=== PATIENT | male | born 1985 | race Caucasian/White ===

== ENCOUNTER 2016-07-22 21:57 | Inpatient (IN) | payer BC, MEDICARE, OTHER ==
[~2016-07-22] VITALS: Ht 175.3 cm; Wt 74.0 kg
[~2016-07-22 21:57] MED LIST: BACT800T5 PO; CIPR500T4 PO; HYDR-3580 PO; NORC7.5T PO
[2016-07-22 22:01] VITALS: BP 118/69; PULSE 110; RESP 22; TEMP 98.3; O2SAT 100
[2016-07-22 22:24] VITALS: BP 150/70; PULSE 96; RESP 18; TEMP 98.3; O2SAT 100
[2016-07-22] MEDS ORDERED: SODIUM CHLORIDE 0.9% FLUSH 10 ML FLUSH IVF PRN (22:30)
--- NOTE | 2016-07-22 22:36 | PD ---
HPI Chief Complaint: Respiratory Symptoms Time Seen by Provider: 22:19 (Efrain Fierro MD) Time Seen by Provider: 00:57 (Choco Mon MD) Travel History International Travel<30 days: No Contact w/Intl Traveler<30days: No Traveled to known affect area: No (Efrain Fierro MD) History of Present Illness HPI Patient 30-year-old male history of IV drug use and endocarditis status post valve replacement to possible aortic valve presents emergency department for chest pain shortness of breath as well as leg swelling. Patient states approximately 8 days ago he was in [place] and went to a physician who stated he had a pneumonia and prescribed him antibiotics. He states since starting the antibiotics he continues to have cough chest pain and shortness of breath and thinks he has endocarditis because it feels same as he had last time. He was told he had a heart murmur in the past he thinks he has an aortic valve replaced. He continues to use IV drugs and used IV drugs since being seen by this other physician 8 days ago. He does however deny any fever. (Efrain Fierro MD) HPI Dr. Fierro left this patient with me to check the lab and make a disposition likely admission. (Choco Mon MD) [facility] Past Medical History Asthma: Yes Anxiety: Yes Depression: No Cancer: No Cardiac Catheterization: Yes Cardiovascular Problems: Yes (hx of endocarditis) Congestive Heart Failure: Yes Cerebrovascular Accident: Yes (2013) Diminished Hearing: No Endocrine: No Gastrointestinal Disorders: No Genitourinary: Yes Hepatitis: Yes (HEP C) Hypertension: Yes Immune Disorder: No Implanted Vascular Access Dvce: No Musculoskeletal: No Neurologic: No Psychiatric: Yes Reproductive: No Respiratory: Yes Immunizations Current: No Pneumonia: Yes (X 2) Renal Failure: Yes (JULY 2013 FROM "BECKY OVERDOSE", DIALYSIS X 7 WEEKS) Tetanus Vaccination: < 5 Years (Efrain Fierro MD) Past Surgical History Cardiac Surgery: Yes (MITRAL VALVE REPLACEMENT AFTER ENDOCARDITIS ) Valve Replacement: Yes Other Surgery: Yes (Efrain Fierro MD) Social History Alcohol Use: Yes () Tobacco Use: Yes (1/2 PPD) Substance Use: Yes (IV DRUG ABUSE, POLY SUBSTANCE ABUSE) (Efrain Fierro MD) Allergies-Medications (Allergen,Severity, Reaction): Coded Allergies: Sesame Seed (Unverified Allergy, Severe, Anaphylaxis, 07/22/16) Shellfish (Unverified Allergy, Severe, Anaphylaxis, 07/22/16) Reported Meds & Prescriptions Reported Meds & Active Scripts Active No Active Prescriptions or Reported Medications (Choco Mon MD) Review of Systems Except as stated in HPI: all other systems reviewed are Neg (Efrain Fierro MD) Except as stated in HPI: all other systems reviewed are Neg (Choco Mon MD) Physical Exam Narrative GENERAL: Well-developed well-nourished, no apparent distress. SKIN: No splinter hemorrhages no Janeway lesions no Osler nodes. HEAD: Atraumatic. Normocephalic. EYES: Pupils equal and round. No scleral icterus. No injection or drainage. ENT: No nasal bleeding or discharge. Mucous membranes pink and moist. NECK: Trachea midline. Mild JVD. CARDIOVASCULAR: Regular rate and rhythm. Crescendo decrescendo systolic murmur best heard in the left sternal border. RESPIRATORY: No accessory muscle use. Clear to auscultation. Breath sounds equal bilaterally. GASTROINTESTINAL: Abdomen soft, non-tender, nondistended. Hepatic and splenic margins not palpable. MUSCULOSKELETAL: No obvious deformities. No clubbing. No cyanosis. 2+ bilateral pitting edema to the distalmost tibia. NEUROLOGICAL: Awake and alert. No obvious cranial nerve deficits. Motor grossly within normal limits. Normal speech. PSYCHIATRIC: Appropriate mood and affect; insight and judgment normal. (Efrain Fierro MD) Narrative GENERAL: The patient is alert, oriented 3 in no respiratory distress. Except for a pulse of 110, the vital signs are normal. SKIN: Focused skin assessment warm/dry. Needle tracks are present on both arms , none of these are infected. HEAD: Atraumatic. Normocephalic. EYES: Pupils equal and round. No scleral icterus. No injection or drainage. ENT: No nasal bleeding or discharge. Mucous membranes pink and moist. NECK: Trachea midline. No JVD. CARDIOVASCULAR: Regular rate and rhythm. No murmur appreciated. RESPIRATORY: No accessory muscle use. Clear to auscultation. Breath sounds equal bilaterally. GASTROINTESTINAL: Abdomen soft, non-tender, nondistended. Hepatic and splenic margins not palpable. MUSCULOSKELETAL: No obvious deformities. No clubbing. No cyanosis. No edema. NEUROLOGICAL: Awake and alert. No obvious cranial nerve deficits. Motor grossly within normal limits. Normal speech. PSYCHIATRIC: Appropriate mood and affect; insight and judgment normal. (Choco Mon MD) Data Data Last Documented VS Vital Signs Date Time Temp Pulse Resp B/P Pulse Ox O2 Delivery O2 Flow Rate FiO2 07/23/16 00:05 94 18 121/68 99 Room Air 07/22/16 22:24 98.3 (Choco Mon MD) Orders Electrocardiogram (07/22/16 22:30) B-Type Natriuretic Peptide (07/22/16 22:30) Ckmb (Isoenzyme) Profile (07/22/16 22:30) Complete Blood Count With Diff (07/22/16 22:30) Comprehensive Metabolic Panel (07/22/16 22:) D-Dimer (07/22/16 22:30) Magnesium (Mg) (07/22/16 22:30) Prothrombin Time / Inr (Pt) (07/22/16 22:30) Act Partial Throm Time (Ptt) (07/22/16 22:30) Troponin I (07/22/16 22:30) Ecg Monitoring (07/22/16 22:30) Bilateral Bp Monitoring (07/22/16 22:30) Iv Access Insert/Monitor (07/22/16 22:30) Oximetry (07/22/16 22:30) Oxygen Administration (07/22/16 22:30) Sodium Chloride 0.9% Flush (Ns Flush) (07/22/16 22:30) Chest, Pa & Lat (07/22/16 22:30) Blood Culture (07/22/16 22:30) Lactic Acid (07/22/16 22:30) Westergren Sedimentation Rate (07/22/16 22:30) C-Reactive Protein (Crp) (07/22/16 22:30) Sodium Chlor 0.9% 1000 Ml Inj (Ns 1000 M (07/23/16 00:15) Sodium Chlor 0.9% 1000 Ml Inj (Ns 1000 M (07/23/16 00:15) Vancomycin Inj (Vancomycin Inj) (07/23/16 00:15) Ampicillin-Sulbactam Inj (Unasyn Inj) (07/23/16 00:15) CKMB (07/22/16 23:00) CKMB% (07/22/16 23:00) (Choco Mon MD) Labs Laboratory Tests Test 07/22/16 23:00 White Blood Count 8.5 TH/MM3 Red Blood Count 5.63 MIL/MM3 Hemoglobin 13.3 GM/DL Hematocrit 42.3 % Mean Corpuscular Volume 75.1 FL Mean Corpuscular Hemoglobin 23.6 PG Mean Corpuscular Hemoglobin 31.4 % Concent Red Cell Distribution Width 20.4 % Platelet Count 286 TH/MM3 Mean Platelet Volume 8.4 FL Neutrophils (%) (Auto) 69.6 % Lymphocytes (%) (Auto) 23.5 % Monocytes (%) (Auto) 4.4 % Eosinophils (%) (Auto) 1.7 % Basophils (%) (Auto) 0.8 % Neutrophils # (Auto) 5.9 TH/MM3 Lymphocytes # (Auto) 2.0 TH/MM3 Monocytes # (Auto) 0.4 TH/MM3 Eosinophils # (Auto) 0.1 TH/MM3 Basophils # (Auto) 0.1 TH/MM3 CBC Comment AUTO DIFF Differential Comment AUTO DIFF CONFIRMED Platelet Estimate NORMAL Platelet Morphology Comment NORMAL Erythrocyte Sedimentation Rate 1 mm/hr Prothrombin Time 14.0 SEC Prothromb Time International 1.3 RATIO Ratio Activated Partial 25.5 SEC Thromboplast Time D-Dimer Quantitative (PE/DVT) 2.54 MG/L FEU Sodium Level 133 MEQ/L Potassium Level 4.2 MEQ/L Chloride Level 97 MEQ/L Carbon Dioxide Level 21.6 MEQ/L Anion Gap 14 MEQ/L Blood Urea Nitrogen 27 MG/DL Creatinine 1.50 MG/DL Estimat Glomerular Filtration 55 ML/MIN Rate Random Glucose 101 MG/DL Lactic Acid Level 3.7 mmol/L Calcium Level 8.2 MG/DL Magnesium Level 1.9 MG/DL Total Bilirubin 1.2 MG/DL Aspartate Amino Transf 78 U/L (AST/SGOT) Alanine Aminotransferase 76 U/L (ALT/SGPT) Alkaline Phosphatase 138 U/L Total Creatine Kinase 222 U/L Creatine Kinase MB 4.1 NG/ML Troponin I 0.06 NG/ML C-Reactive Protein 2.61 MG/DL B-Type Natriuretic Peptide 3609 PG/ML Total Protein 7.4 GM/DL Albumin 3.4 GM/DL (Choco Mon MD) Labs Laboratory Tests Test 07/22/16 23:00 White Blood Count 8.5 TH/MM3 Red Blood Count 5.63 MIL/MM3 Hemoglobin 13.3 GM/DL Hematocrit 42.3 % Mean Corpuscular Volume 75.1 FL Mean Corpuscular Hemoglobin 23.6 PG Mean Corpuscular Hemoglobin 31.4 % Concent Red Cell Distribution Width 20.4 % Platelet Count 286 TH/MM3 Mean Platelet Volume 8.4 FL Neutrophils (%) (Auto) 69.6 % Lymphocytes (%) (Auto) 23.5 % Monocytes (%) (Auto) 4.4 % Eosinophils (%) (Auto) 1.7 % Basophils (%) (Auto) 0.8 % Neutrophils # (Auto) 5.9 TH/MM3 Lymphocytes # (Auto) 2.0 TH/MM3 Monocytes # (Auto) 0.4 TH/MM3 Eosinophils # (Auto) 0.1 TH/MM3 Basophils # (Auto) 0.1 TH/MM3 CBC Comment AUTO DIFF Differential Comment AUTO DIFF CONFIRMED Platelet Estimate NORMAL Platelet Morphology Comment NORMAL Erythrocyte Sedimentation Rate 1 mm/hr Prothrombin Time 14.0 SEC Prothromb Time International 1.3 RATIO Ratio Activated Partial 25.5 SEC Thromboplast Time D-Dimer Quantitative (PE/DVT) 2.54 MG/L FEU Sodium Level 133 MEQ/L Potassium Level 4.2 MEQ/L Chloride Level 97 MEQ/L Carbon Dioxide Level 21.6 MEQ/L Anion Gap 14 MEQ/L Blood Urea Nitrogen 27 MG/DL Creatinine 1.50 MG/DL Estimat Glomerular Filtration 55 ML/MIN Rate Random Glucose 101 MG/DL Lactic Acid Level 3.7 mmol/L Calcium Level 8.2 MG/DL Magnesium Level 1.9 MG/DL Total Bilirubin 1.2 MG/DL Aspartate Amino Transf 78 U/L (AST/SGOT) Alanine Aminotransferase 76 U/L (ALT/SGPT) Alkaline Phosphatase 138 U/L Total Creatine Kinase 222 U/L Creatine Kinase MB 4.1 NG/ML Troponin I 0.06 NG/ML C-Reactive Protein 2.61 MG/DL B-Type Natriuretic Peptide 3609 PG/ML Total Protein 7.4 GM/DL Albumin 3.4 GM/DL (Efrain Fierro MD) [facility] Medical Decision Making Medical Screen Exam Complete: Yes Emergency Medical Condition: Yes Interpretation(s) EKG shows sinus rhythm with a left bundle-branch block, does not satisfy Sgarbossa criteria for acute STEMI, this is an abnormal EKG. comparison to 2014 there is some new left bundle branch block. Differential Diagnosis Endocarditis, chest pain, CHF, valve failure unlikely. Narrative Course Patient was roomed in emergency department, abnormal EKG and pedal edema. Needs to be considered for endocarditis versus new onset CHF. Otherwise will need admission to the hospital. Basic laboratory workup has been ordered. Patient discussed with Dr. Mon at midnight follow-up labs and admitted to the hospital. (Efrain Fierro MD) Medical Screen Exam Complete: Yes Emergency Medical Condition: Yes Medical Record Reviewed: Yes Differential Diagnosis Endocarditis, sepsis, electrolyte disorder, cellulitis around needle tracks Narrative Course The patient likely has endocarditis. I discussed the patient with Dr. El and she wanted him admitted for observation. (Choco Mon MD) Diagnosis Primary Impression: Endocarditis of aortic valve Additional Impression: IV drug abuse Scripts No Active Prescriptions or Reported Meds Efrain Fierro MD Jul 22, 2016 22:36 Choco Mon MD Jul 23, 2016 01:10
[2016-07-22 23:30] VITALS: BP_SYST 129; BP_SYST 134; BP_DIAS 65; BP_DIAS 66; RESP 18; O2SAT 100
[2016-07-22 23:39] LABS: AUTOMATED NEUTROPHIL # 5.9 TH/MM3 (1.8-7.7); BASOPHIL # 0.1 TH/MM3 (0-0.2); BASOPHIL % 0.8 % (0.0-2.0); EOSINOPHIL # 0.1 TH/MM3 (0-0.4); EOSINOPHIL % 1.7 % (0.0-4.0); HEMATOCRIT 42.3 % (39.0-51.0); LYMPH % 23.5 % (9.0-44.0); MEAN CELL VOLUME 75.1 FL (80.0-100.0); MEAN CORPUSCULAR HEMOGLOBIN 23.6 PG (27.0-34.0); MEAN CORPUSCULAR HGB CONC 31.4 % (32.0-36.0); MONO % 4.4 % (0.0-8.0); NEUT % 69.6 % (16.0-70.0); PLATELET COUNT 286 TH/MM3 (150-450); RED BLOOD COUNT 5.63 MIL/MM3 (4.50-5.90); RED CELL DISTRIBUTION WIDTH 20.4 % (11.6-17.2); WHITE BLOOD COUNT 8.5 TH/MM3 (4.0-11.0)
[2016-07-22 23:58] LABS: CHLORIDE 97 MEQ/L (98-107); SODIUM (NA) 133 MEQ/L (136-145)
[2016-07-22 23:59] LABS: HEMO FLAGS AUTO DIFF; POTASSIUM 4.2 MEQ/L (3.5-5.1)
[2016-07-23] VITALS (7 sets, daily range): BP systolic 113–129; BP diastolic 59–72; PULSE 82–94; RESP 18–24; TEMP 96.3–97.7; O2SAT 95–100
[2016-07-23 00:02] LABS: ANION GAP 14 MEQ/L (5-15); BICARBONATE 21.6 MEQ/L (21.0-32.0); BLOOD UREA NITROGEN 27 MG/DL (7-18); MAGNESIUM 1.9 MG/DL (1.5-2.5)
[2016-07-23 00:05] LABS: ALT (GPT) 76 U/L (12-78); AST (GOT) 78 U/L (15-37); GLOMERULAR FILTRATION RATE 55 ML/MIN (>89)
--- NOTE | 2016-07-23 00:05 | RADHPO ---
EXAM DATE/TIME: 07/22/2016 23:54 [facility] COMPARISON: CHEST SINGLE AP, December 13, 2014, 20:35. INDICATIONS : Chest pain. Short of breath. MEDICAL HISTORY : None. Valve replacement. SURGICAL HISTORY : None. Valve ENCOUNTER: Initial ACUITY: 1 day PAIN SCORE: 7/10 LOCATION: Bilateral chest FINDINGS: PA and lateral views of the chest demonstrate some pleural fluid loculating in the major and minor fi ssure on the right.. The cardiac silhouette remains enlarged. Numerous sternal wires and a prosthetic aortic valve. Osseous structures are intact. CONCLUSION: Heart is enlarged. Loculated right pleural effusion. Juan Pablo MD on July 23, 2016 at 0:03 Board Certified Radiologist. This report was verified electronically.
[2016-07-23 00:06] LABS: APTT (PATIENT) 25.5 SEC (24.3-30.1); INTERNATIONAL NORMALIZED RATIO 1.3 RATIO
[2016-07-23 00:07] LABS: TOTAL BILIRUBIN ADULT 1.2 MG/DL (0.2-1.0)
[2016-07-23 00:08] LABS: ALKALINE PHOSPHATASE 138 U/L (45-117); CREATINE KINASE 222 U/L (39-308)
[2016-07-23] MEDS ORDERED: VANCOMYCIN INJ 1,000 MG in SODIUM CHLOR 0.9% 250 ML INJ 250 ML IV ONE (00:15)
[2016-07-23] MEDS ORDERED: SODIUM CHLOR 0.9% 1000 ML INJ 1,000 ML IV ONE ×2 (00:15)
[2016-07-23] MEDS ORDERED: AMPICILLIN-SULBACTAM INJ 3 GM in SODIUM CHLORIDE 0.9% INJ 100 ML IV ONE (00:15)
[2016-07-23 00:20] LABS: CKMB 4.1 NG/ML (0.5-3.6)
[2016-07-23 00:26] LABS: PLATELET ESTIMATE SMEAR NORMAL (NORMAL); PLATELET MORPHOLOGY NORMAL (NORMAL); SCAN/DIFF AUTO DIFF CONFIRMED
--- NOTE | 2016-07-23 00:58 | PD ---
Physical Exam Time Seen by Provider: 00:[address] Fierro left this patient with me to check the laboratory and make a dispositionlikely admission. Data Data Last Documented VS Vital Signs Date Time Temp Pulse Resp B/P Pulse Ox O2 Delivery O2 Flow Rate FiO2 07/23/16 00:05 94 18 121/68 99 Room Air 07/22/16 22:24 98.3 Orders Electrocardiogram (07/22/16 22:30) B-Type Natriuretic Peptide (07/22/16 22:30) Ckmb (Isoenzyme) Profile (07/22/16 22:30) Complete Blood Count With Diff (07/22/16 22:30) Comprehensive Metabolic Panel (07/22/16 22:30) D-Dimer (07/22/16 22:30) Magnesium (Mg) (07/22/16 22:30) Prothrombin Time / Inr (Pt) (07/22/16 22:30) Act Partial Throm Time (Ptt) (07/22/16 22:30) Troponin I (07/22/16 22:30) Ecg Monitoring (07/22/16 22:30) Bilateral Bp Monitoring (07/22/16 22:30) Iv Access Insert/Monitor (07/22/16 22:30) Oximetry (07/22/16 22:30) Oxygen Administration (07/22/16 22:30) Sodium Chloride 0.9% Flush (Ns Flush) (07/22/16 22:30) Chest, Pa & Lat (07/22/16 22:30) Blood Culture (07/22/16 22:30) Lactic Acid (07/22/16 22:30) Westergren Sedimentation Rate (07/22/16 22:30) C-Reactive Protein (Crp) (07/22/16 22:30) Sodium Chlor 0.9% 1000 Ml Inj (Ns 1000 M (07/23/16 00:15) Sodium Chlor 0.9% 1000 Ml Inj (Ns 1000 M (07/23/16 00:15) Vancomycin Inj (Vancomycin Inj) (07/23/16 00:15) Ampicillin-Sulbactam Inj (Unasyn Inj) (07/23/16 00:15) CKMB (07/22/16 23:00) CKMB% (07/22/16 23:00) Labs Laboratory Tests Test 07/22/16 23:00 White Blood Count 8.5 TH/MM3 Red Blood Count 5.63 MIL/MM3 Hemoglobin 13.3 GM/DL Hematocrit 42.3 % Mean Corpuscular Volume 75.1 FL Mean Corpuscular Hemoglobin 23.6 PG Mean Corpuscular Hemoglobin 31.4 % Concent Red Cell Distribution Width 20.4 % Platelet Count 286 TH/MM3 Mean Platelet Volume 8.4 FL Neutrophils (%) (Auto) 69.6 % Lymphocytes (%) (Auto) 23.5 % Monocytes (%) (Auto) 4.4 % Eosinophils (%) (Auto) 1.7 % Basophils (%) (Auto) 0.8 % Neutrophils # (Auto) 5.9 TH/MM3 Lymphocytes # (Auto) 2.0 TH/MM3 Monocytes # (Auto) 0.4 TH/MM3 Eosinophils # (Auto) 0.1 TH/MM3 Basophils # (Auto) 0.1 TH/MM3 CBC Comment AUTO DIFF Differential Comment AUTO DIFF CONFIRMED Platelet Estimate NORMAL Platelet Morphology Comment NORMAL Erythrocyte Sedimentation Rate 1 mm/hr Prothrombin Time 14.0 SEC Prothromb Time International 1.3 RATIO Ratio Activated Partial 25.5 SEC Thromboplast Time D-Dimer Quantitative (PE/DVT) 2.54 MG/L FEU Sodium Level 133 MEQ/L Potassium Level 4.2 MEQ/L Chloride Level 97 MEQ/L Carbon Dioxide Level 21.6 MEQ/L Anion Gap 14 MEQ/L Blood Urea Nitrogen 27 MG/DL Creatinine 1.50 MG/DL Estimat Glomerular Filtration 55 ML/MIN Rate Random Glucose 101 MG/DL Lactic Acid Level 3.7 mmol/L Calcium Level 8.2 MG/DL Magnesium Level 1.9 MG/DL Total Bilirubin 1.2 MG/DL Aspartate Amino Transf 78 U/L (AST/SGOT) Alanine Aminotransferase 76 U/L (ALT/SGPT) Alkaline Phosphatase 138 U/L Total Creatine Kinase 222 U/L Creatine Kinase MB 4.1 NG/ML Troponin I 0.06 NG/ML C-Reactive Protein 2.61 MG/DL B-Type Natriuretic Peptide 3609 PG/ML Total Protein 7.4 GM/DL Albumin 3.4 GM/DL [facility] Medical Record Reviewed: Yes Supervised Visit with IRVING: Yes Interpretation(s) The BUN is 27, cranial 1.5, GFR 55, calcium 8.2, alkaline phosphatase 138, GOT 78, total bilirubin 1.2, sodium 133. The C-reactive protein is 2.61 the coagulation profile shows a ProTime of 14.0 and INR 1.3. The d-dimer is 2.54. The CBC is normal but slightly low MCV, and see the. The EKG shows sinus rhythm with borderline first-degree AV block. It shows right ventricular. He was secondary repolarization abnormality. Differential Diagnosis Sepsis, endocarditis, acute myocardial infarction, pericarditis, myocarditis, IV drug abuse Narrative Course The patient likely has endocarditis. The troponin I is minimally elevated as is the CK-MB. Diagnosis Primary Impression: Endocarditis of aortic valve Additional Impression: IV drug abuse Admitting Information Admitting Physician Requests: Observation Scripts No Active Prescriptions or Reported Meds Choco Mon MD Jul 23, 2016 00:58
[2016-07-23] MEDS ORDERED: SODIUM CHLORIDE 0.9% FLUSH 10 ML FLUSH IV FLUSH PRN (01:15)
[2016-07-23] MEDS ORDERED: NALOXONE HCL 0.4 MG/ML AMP IV PRN (01:15)
[2016-07-23] MEDS ORDERED: Vancomycin Consult Pharmacy 1 EA OTHER SCH (01:30)
[2016-07-23] MEDS ORDERED: ENOXAPARIN SODIUM 80 MG/0.8 ML SYRINGE SQ ONE (02:30)
[2016-07-23] MEDS ORDERED: ONDANSETRON HCL 4 MG/2 ML VIAL IV PRN (05:30)
[2016-07-23] MEDS ORDERED: CALCIUM CARBONATE 500 MG CHEWABLE TAB CHEW PRN (05:30)
[2016-07-23] MEDS ORDERED: DOCUSATE SODIUM 100 MG CAP PO PRN (05:30)
[2016-07-23] MEDS: SODIUM CHLORIDE 0.9% FLUSH 10 ML FLUSH IV FLUSH SCH ×2 (10:06→22:00)
--- NOTE | 2016-07-23 10:14 | HHI.HP ---
[facility] Admission Diagnosis endocarditis, IV drug abuse Diagnoses: Chief Complaint: Shortness of breath Travel History International Travel<30 Days: No Contact w/Intl Traveler <30 Da: No Traveled to Known Affected Are: No History of Present Illness 30-year-old male with a past medical history of endocarditis, hep C, IVDA who presented with shortness of breath. The patient states that has been having shortness of breath and cough, occasionally productive. He states that his PCP recently treated him for pneumonia with ceftriaxone oral for 7 days, with no improvement. He presents with worsening shortness of breath. He states his shortness of breath is worse with exertion. He has noted a 5 or 10 pound weight gain in the past 2 months. Occasionally has problems lying flat, uses 2 pillows to sleep at night. He does have some leg swelling, denies any leg pain. He denies any chest pain, fever, or chills. He does continue to inject IV Dilaudid, last use yesterday. Of note, the patient wants to go back to [place] in 5 days. Review of Systems Except as stated in HPI: all other systems reviewed are Neg Past Family Social History Past Medical History History of endocarditis with complications including CHF and CVA Hepatitis C, untreated IV drug abuse Past Surgical History Aortic valve replacement and "cleaned" mitral valve in 2013 Reported Medications None currently Allergies: Coded Allergies: Sesame Seed (Unverified Allergy, Severe, Anaphylaxis, 07/22/16) Shellfish (Unverified Allergy, Severe, Anaphylaxis, 07/22/16) Active Ordered Medications Current Medications Medications (Trade) Dose Ordered Sig/Francisco J Route Start Time Stop Time Status Last Admin (NS Flush) 2 ml UNSCH PRN IV FLUSH 07/23/16 01:15 (NS Flush) 2 ml BID IV FLUSH 07/23/16 09:00 07/23/16 10:06 Naloxone HCl 0.4 mg 0.4 mg UNSCH PRN IV 07/23/16 01:15 Pharmacy Profile Note 0 ml @ 0 mls/hr UNSCH OTHER 07/23/16 01:30 (Vancomycin Inj/ NS 250 ml Inj) 250 ml @ 250 mls/hr Q12H IV 07/23/16 16:00 Miscellaneous Information SPECIFIC LAB TO BE GREGG... ONCE ONCE .XX 07/24/16 15:45 07/24/16 15:46 (Tylenol) 650 mg Q4H PRN PO 07/23/16 05:30 (Zofran Inj) 4 mg Q6H PRN IV 07/23/16 05:30 (Colace) 100 mg BID PRN PO 07/23/16 05:30 (Tums Chew) 1,000 mg TID PRN CHEW 07/23/16 05:30 (Lasix Inj) 20 mg DAILY IV PUSH 07/23/16 10:15 UNV Family History Diabetes Social History IV drug abuse with Dilaudid Denies alcohol use Occasional tobacco use Physical Exam Vital Signs Vital Signs Date Time Temp Pulse Resp B/P Pulse Ox O2 Delivery O2 Flow Rate FiO2 07/23/16 08:00 96.9 82 24 122/62 100 07/23/16 04:33 96 18 98 07/23/16 04:07 94 18 122/66 98 Room Air 07/23/16 04:00 97.7 91 18 129/67 95 07/23/16 02:10 92 18 116/66 99 Room Air 07/23/16 00:05 94 18 121/68 99 Room Air 07/22/16 23:30 129/65 134/66 07/22/16 23:30 18 100 Room Air 07/22/16 23:30 100 Room Air 07/22/16 22:26 96 18 100 Room Air 07/22/16 22:24 98.3 96 18 150/70 100 07/22/16 22:01 98.3 110 22 118/69 100 Room Air Physical Exam GENERAL: Well-developed well-nourished. In no acute distress. SKIN: Warm and dry. Track camacho present. HEENT: Normocephalic. Pupils equal and round. Mucous membranes pink and moist. Positive JVD. CARDIOVASCULAR: Regular rate and rhythm. Mechanical murmur appreciated. RESPIRATORY: No accessory muscle use. Clear to auscultation. Breath sounds equal bilaterally. GASTROINTESTINAL: Abdomen soft, non-tender, nondistended. Bowel sounds x4. MUSCULOSKELETAL: No obvious deformities. No clubbing or cyanosis. 1+ to trace edema. NEUROLOGICAL: Awake and alert. No focal neurological deficits. Moves upper and lower extremities spontaneously. Normal speech. PSYCHIATRIC: Appropriate mood and affect; insight and judgment normal. Laboratory Laboratory Tests Test 07/22/16 23:00 White Blood Count 8.5 Red Blood Count 5.63 Hemoglobin 13.3 Hematocrit 42.3 Mean Corpuscular Volume 75.1 Mean Corpuscular Hemoglobin 23.6 Mean Corpuscular Hemoglobin 31.4 Concent Red Cell Distribution Width 20.4 Platelet Count 286 Mean Platelet Volume 8.4 Neutrophils (%) (Auto) 69.6 Lymphocytes (%) (Auto) 23.5 Monocytes (%) (Auto) 4.4 Eosinophils (%) (Auto) 1.7 Basophils (%) (Auto) 0.8 Neutrophils # (Auto) 5.9 Lymphocytes # (Auto) 2.0 Monocytes # (Auto) 0.4 Eosinophils # (Auto) 0.1 Basophils # (Auto) 0.1 CBC Comment AUTO DIFF Differential Comment AUTO DIFF CONFIRMED Platelet Estimate NORMAL Platelet Morphology Comment NORMAL Erythrocyte Sedimentation Rate 1 Prothrombin Time 14.0 Prothromb Time International 1.3 Ratio Activated Partial 25.5 Thromboplast Time D-Dimer Quantitative (PE/DVT) 2.54 Sodium Level 133 Potassium Level 4.2 Chloride Level 97 Carbon Dioxide Level 21.6 Anion Gap 14 Blood Urea Nitrogen 27 Creatinine 1.50 Estimat Glomerular Filtration 55 Rate Random Glucose 101 Lactic Acid Level 3.7 Calcium Level 8.2 Magnesium Level 1.9 Total Bilirubin 1.2 Aspartate Amino Transf 78 (AST/SGOT) Alanine Aminotransferase 76 (ALT/SGPT) Alkaline Phosphatase 138 Total Creatine Kinase 222 Creatine Kinase MB 4.1 Troponin I 0.06 C-Reactive Protein 2.61 B-Type Natriuretic Peptide 3609 Total Protein 7.4 Albumin 3.4 Date/Time Procedure Status Source Growth 07/22/16 23:20 Aerobic Blood Culture Received Blood Peripheral Pending 07/22/16 23:20 Anaerobic Blood Culture Received Blood Peripheral Pending Result Diagram: 07/22/16229907/22/162299 Imaging Last Impressions Chest X-Ray 07/22/162229 Signed Impressions: Service Date/Time: Friday, July 22, 2016 23:54 - CONCLUSION: Heart is enlarged. Loculated right pleural effusion. Juan Pablo MD Assessment and Plan Assessment and Plan 30-year-old male with a past medical history of endocarditis, hep C, IVDA who presented with shortness of breath Acute congestive heart failure secondary to endocarditis: Preliminary echo report with vegetations, patient reports these are chronic. Previous echocardiogram from 2015 with normal EF. Chest x-ray personally reviewed with right pleural effusion. BNP 3600. REHMAN, orthopnea, weight gain, and lower extremity edema without chest pain consistent with CHF. Follow-up formal echocardiogram report. Diuresis with IV Lasix. Monitor I's and O's. Likely endocarditis with severe sepsis: Tachycardia, tachypnea, lactic acid 3.7. Elevated CRP, ESR within normal limits. Blood cultures pending. IV vancomycin. Consult ID. Acute kidney injury: Creatinine 1.5, previously 0.94 on 12/13/14. Suspect this is cardiorenal, although 2/2 infection is in the differential. Diuresis as above. Treat infection. Follow-up BMP. Elevated troponin and d-dimer: The patient denies any chest pain. Troponin is 0.06, previously 0.13 on 04/29/14, likely chronic elevation. Suspect elevated D dimer is due to acute infection vs IVDA. EKG does have new LBBB. As patient is without chest pain and symptoms are consistent with CHF, no further workup indicated at this time. IV drug abuse: Patient counseled on cessation. DVT prophylaxis: Lovenox Written by Jordan Munoz, acting as scribe for Dr. Quarles on 07/23/16 at 10:14. This note was transcribed by scribe []. I, Dr. Uriel Quarles personally performed the history, physical exam, and medical decision making; and confirmed the accuracy of the information in the transcribed note. Authenticated by Dr. Uriel Quarles on 07/23/16 at 21:35. Discussed Condition With Patient with RN at bedside Jordan Munoz Jul 23, 2016 10:14 Uriel Quarles MD Jul 23, 2016 21:35
[2016-07-23] MEDS ORDERED: ENOXAPARIN SODIUM 40 MG/0.4 ML SYRINGE SQ SCH (11:00)
[2016-07-23] MEDS: FUROSEMIDE 20 MG/2 ML VIAL IV PUSH SCH (11:08)
[2016-07-23] MEDS: ACETAMINOPHEN 325 MG TAB PO PRN ×3 (11:16→21:58)
[2016-07-23] MEDS: LACTOBACILLUS ACIDOPHILUS 1 GM PACKET PO SCH ×2 (13:10→18:27)
--- NOTE | 2016-07-23 15:49 | EC ---
Study Study Date:07/23/2016 STUDY CONCLUSIONS SUMMARY - Left ventricle: The cavity size was mildly dilated. Wall thickness was increased in a pattern of mild LVH. Systolic function was mildly reduced. The estimated ejection fraction was in the range of 45% to 50%. Wall motion was normal; there were no regional wall motion abnormalities. - Aortic valve: There are multiple vegitations including a 1,2 x 8 mm mobile density that is new when compare to the 2015 study. Transvalvular velocity was increased. There was moderate stenosis. Moderate to severe regurgitation. Valve area: 0.71cm^2(VTI). Valve area: 0.76cm^2 (Vmax). - Mitral valve: Mild regurgitation. - Left atrium: The atrium was mildly dilated. - Pulmonary arteries: Systolic pressure was moderately increased. PA peak pressure: 44mm Hg (S). If LV function is below 40, please consider prescribing an ACEI or ARB or document rationale for non-use. PROCEDURE DATA STUDY STATUS: Elective. Procedure: Transthoracic echocardiography. Image quality was good. Scanning was performed from the parasternal, apical, and subcostal acoustic windows. Study completion: The patient tolerated the procedure well. Transthoracic echocardiography. M-mode, complete 2D, complete spectral Doppler, and color Doppler. Patient status: Inpatient. CARDIAC ANATOMY LEFT VENTRICLE: The cavity size was mildly dilated. Wall thickness was increased in a pattern of mild LVH. Systolic function was mildly reduced. The estimated ejection fraction was in the range of 45% to 50%. Wall motion was normal; there were no regional wall motion abnormalities. AORTIC VALVE: There are multiple vegitations including a 1.2 x 8 mm mobile density that is new when compare to the 2015 study. Trileaflet; severely thickened leaflets. Doppler: Transvalvular velocity was increased. There was moderate stenosis. Moderate to severe regurgitation. Valve area: 0.71cm^2(VTI). Valve area: 0.76cm^2 (Vmax). Mean gradient: 29mm Hg (S). Peak gradient: 52mm Hg (S). AORTA: Aortic root: The aortic root was normal in size. MITRAL VALVE: There is thickening and multiple densities consistentwith old or active endocarditis. Doppler: Transvalvular velocity was within the normal range. There was no evidence for stenosis. Mild regurgitation. Valve area by pressure half-time: 3.19cm^2. LEFT ATRIUM: The atrium was mildly dilated. RIGHT VENTRICLE: The cavity size was normal. Wall thickness was normal. PULMONIC VALVE: Doppler: Transvalvular velocity was within the normal range. There was no evidence for stenosis. No regurgitation. TRICUSPID VALVE: Structurally normal valve. Doppler: Transvalvular velocity was within the normal range. No regurgitation. PULMONARY ARTERY: The main pulmonary artery was normal-sized. Systolic pressure was moderately increased. RIGHT ATRIUM: The atrium was normal in size. PERICARDIUM: There was no pericardial effusion. SYSTEMIC VEINS: Inferior vena cava: The vessel was normal in size. BASIC MEASUREMENTS ADULT Normal Left ventricle LV internal dimension, ED, chordal level, *63.6 mm 43-52 PLAX LV internal dimension, ES, chordal level, *55 mm 23-38 PLAX Fractional shortening, chordal level, PLAX *14 % >29 LV posterior wall thickness, ED 12.5 mm IVS/LVPW ratio, ED 0.75 <1.3 Ventricular septum Septal thickness, ED 9.36 mm Right ventricle RV internal dimension, ED, PLAX *38.4 mm 19-38 BASIC MEASUREMENTS ADULT Normal Aorta Root diameter, ED 36 mm 20-37 Left atrium Anterior-posterior dimension, ES *44 mm 19-40 LA/aortic root ratio 1.22 DOPPLER MEASUREMENTS ADULT Normal Main pulmonary artery Pressure, S *44 mm Hg =30 Aortic valve Peak velocity, S 359 cm/s Mean velocity, S 248 cm/s VTI, S 86.4 cm Mean gradient, S 29 mm Hg Peak gradient, S 52 mm Hg Valve area, VTI 0.71 cm^2 Valve area, Vmax 0.76 cm^2 Regurgitant velocity, ED 402 cm/s Regurgitant deceleration 81937 cm/s^2 Regurgitant pressure half-time 118 ms Regurgitant gradient, ED 65 mm Hg Mitral valve Pressure half-time 69 ms Valve area, pressure half-time 3.19 cm^2 Tricuspid valve Regurgitant peak velocity 291 cm/s Peak RV-RA gradient, S 34 mm Hg Maximal regurgitant velocity 291 cm/s Systemic veins Estimated CVP 10 mm Hg Right ventricle RV pressure, S *44 mm Hg <30 LEGEND: Mean values are shown as u=mean value. Asterisk (*) camacho values outside specified normal range. Prepared and signed by Rosa Bustamante [id number]
[2016-07-23] MEDS: VANCOMYCIN 1,000 MG/NS 250 ML IV SCH ×2 (15:50)
[2016-07-23 18:37] LABS: C. DIFF EPI 027 PRESUMPTIVE NEGATIVE (NEGATIVE); C. DIFF TOXIN PCR NEGATIVE (NEGATIVE)
--- NOTE | 2016-07-23 19:22 | PD.CONS ---
History of Present Illness Service Infectious disease Consult Requested By Dr Quarles Reason for Consult ? Endocarditis Primary Care Physician Unknown Diagnoses: (1) Endocarditis of aortic valve (2) IV drug abuse (3) Hepatitis C History of Present Illness Patient has a h/o IVDU and continues to use- has had Endocarditis repeatedly in the past- h/o Aortic valve replacement and still continues to use- last use being 1 day before admission- has been in [place] for last two ears- says he was diagnosed with Bronchitis and then Pneumonia by his PCP in [place] and was treated with a week of antibiotics - came to [place] for vacation and his breathing got progressively worse and so he came to the hospital. He denoes any fevers, chills. He says he has to go back to [place] in 2 days. Review of Systems Constitutional: COMPLAINS OF: Weight loss, DENIES: Fever Endocrine: DENIES: Polydipsia, Polyuria Eyes: DENIES: Blurred vision, Diplopia Ears, nose, mouth, throat: DENIES: Hearing loss, Nasal discharge Respiratory: COMPLAINS OF: Cough, Shortness of breath, DENIES: Hemoptysis, Sputum production Cardiovascular: COMPLAINS OF: Lower Extremity Edema, DENIES: Chest pain, Palpitations Gastrointestinal: COMPLAINS OF: Diarrhea, DENIES: Abdominal pain, Nausea Genitourinary: DENIES: Urinary frequency, Urinary incontinence Musculoskeletal: DENIES: Joint pain, Muscle aches Integumentary: DENIES: Abnormal pigmentation Neurologic: DENIES: Headache, Speech Problems Psychiatric: DENIES: Confusion Past Family Social History Allergies: Coded Allergies: Sesame Seed (Unverified Allergy, Severe, Anaphylaxis, 07/22/16) Shellfish (Unverified Allergy, Severe, Anaphylaxis, 07/22/16) Past Medical History History of endocarditis with complications including CHF and CVA Hepatitis C, untreated IV drug abuse Past Surgical History Aortic valve replacement and "cleaned" mitral valve in 2014 Reported Medications IV Vancomycin Unasyn just stopped Social History Lives in [place] now IVDU - Dilaudid Physical Exam Vital Signs Vital Signs Date Time Temp Pulse Resp B/P Pulse Ox O2 Delivery O2 Flow Rate FiO2 07/23/16 12:00 96.3 82 20 113/59 100 07/23/16 08:00 96.9 82 24 122/62 100 07/23/16 04:33 96 18 98 07/23/16 04:07 94 18 122/66 98 Room Air 07/23/16 04:00 97.7 91 18 129/67 95 07/23/16 02:10 92 18 116/66 99 Room Air 07/23/16 00:05 94 18 121/68 99 Room Air 07/22/16 23:30 129/65 134/66 07/22/16 23:30 18 100 Room Air 07/22/16 23:30 100 Room Air 07/22/16 22:26 96 18 100 Room Air 07/22/16 22:24 98.3 96 18 150/70 100 07/22/16 22:01 98.3 110 22 118/69 100 Room Air Physical Exam GENERAL: This is a chronically ill patient, in no apparent distress. SKIN: No rashes, . Cool and dry. Needle tracks seen HEAD: Atraumatic. Normocephalic. No temporal or scalp tenderness. EYES: Pupils equal round and reactive. Extraocular motions intact. No scleral icterus. No injection or drainage. ENT: Nose without bleeding, purulent drainage or septal hematoma. Throat without erythema, tonsillar hypertrophy or exudate. Uvula midline. Airway patent. NECK: Trachea midline. No JVD or lymphadenopathy. Supple, nontender, no meningeal signs. CARDIOVASCULAR: Regular rate and rhythm No, gallops, or rubs. Systolic murmur heard RESPIRATORY: Clear to auscultation. Breath sounds equal bilaterally- but diminished. No wheezes, rales, or rhonchi. GASTROINTESTINAL: Abdomen soft, non-tender, nondistended. No hepato-splenomegaly , or palpable masses. No guarding. MUSCULOSKELETAL: Extremities without clubbing, cyanosis, or edema. No joint tenderness, effusion, or edema noted. No calf tenderness. Negative Homans sign bilaterally. NEUROLOGICAL: Awake and alert. Cranial nerves II through XII intact. Motor and sensory grossly within normal limits. Five out of 5 muscle strength in all muscle groups. Normal speech. Laboratory Laboratory Tests Test 07/22/16 07/23/16 23:00 13:10 White Blood Count 8.5 Red Blood Count 5.63 Hemoglobin 13.3 Hematocrit 42.3 Mean Corpuscular Volume 75.1 Mean Corpuscular Hemoglobin 23.6 Mean Corpuscular Hemoglobin 31.4 Concent Red Cell Distribution Width 20.4 Platelet Count 286 Mean Platelet Volume 8.4 Neutrophils (%) (Auto) 69.6 Lymphocytes (%) (Auto) 23.5 Monocytes (%) (Auto) 4.4 Eosinophils (%) (Auto) 1.7 Basophils (%) (Auto) 0.8 Neutrophils # (Auto) 5.9 Lymphocytes # (Auto) 2.0 Monocytes # (Auto) 0.4 Eosinophils # (Auto) 0.1 Basophils # (Auto) 0.1 CBC Comment AUTO DIFF Differential Comment AUTO DIFF CONFIRMED Platelet Estimate NORMAL Platelet Morphology Comment NORMAL Erythrocyte Sedimentation Rate 1 Prothrombin Time 14.0 Prothromb Time International 1.3 Ratio Activated Partial 25.5 Thromboplast Time D-Dimer Quantitative (PE/DVT) 2.54 Sodium Level 133 Potassium Level 4.2 Chloride Level 97 Carbon Dioxide Level 21.6 Anion Gap 14 Blood Urea Nitrogen 27 Creatinine 1.50 Estimat Glomerular Filtration 55 Rate Random Glucose 101 Lactic Acid Level 3.7 Calcium Level 8.2 Magnesium Level 1.9 Total Bilirubin 1.2 Aspartate Amino Transf 78 (AST/SGOT) Alanine Aminotransferase 76 (ALT/SGPT) Alkaline Phosphatase 138 Total Creatine Kinase 222 Creatine Kinase MB 4.1 Troponin I 0.06 C-Reactive Protein 2.61 B-Type Natriuretic Peptide 3609 Total Protein 7.4 Albumin 3.4 Stool C. difficile Toxin (PCR) NEGATIVE Stl C. difficile Toxin PRESUMPTIVE Epiderm 027 NEGATIVE Date/Time Procedure Status Source Growth 07/22/16 23:20 Aerobic Blood Culture - Preliminary Resulted Blood Peripheral NO GROWTH IN 1 DAY 07/22/16 23:20 Anaerobic Blood Culture - Preliminary Resulted Blood Peripheral NO GROWTH IN 1 DAY Result Diagram: 07/22/16 2300 07/22/16 2300 Assessment and Plan Problem List: (1) Endocarditis of aortic valve Status: Acute Plan: Follow Blood cultures Continue IV Vancomycin- pharmacy to dose Add IV Ceftriaxone 2 g IV daily Patient has a poor prognosis- he has had a valve replacement and continues to use IV drugs with poor insight to his condition. (2) IV drug abuse Status: Chronic Lorri Florence MD Jul 23, 2016 19:22
[2016-07-23] MEDS ORDERED: cefTRIAXone INJ 2,000 MG in SODIUM CHLORIDE 0.9% INJ 100 ML IV SCH (20:00)
[2016-07-23] MEDS: LORazepam 2 MG/ML VIAL IV PUSH PRN (22:11)
[2016-07-24] VITALS: BP 118/75; PULSE 84; RESP 18; TEMP 97.4; O2SAT 99
--- NOTE | 2016-07-24 00:08 | EKG ---
Date Performed: 07/22/2016 Time Performed: 23:34:32 PTAGE: 30 years EKG: Sinus rhythm with borderline 1st degree A-V block Right axis deviation IV conduction defect RVH with secondary re polarization abnormality Anterolateral ST elevation suggests early repolarization Inferior/lateral ST -T changes may be due to hypertrophy and/or ischemia Abnormal ECG PREVIOUS TRACING : 12/13/2014 20.48 Compared to the previous tracing, IVCD is new with secondar y changes DOCTOR: Jeremy Zee Interpretating Date/Time 07/24/2016 00:06:32
[2016-07-24] MEDS: LORazepam 2 MG/ML VIAL IV PUSH PRN (04:18)
[2016-07-24] MEDS: VANCOMYCIN 1,000 MG/NS 250 ML IV SCH ×4 (04:23→16:04)
[2016-07-24] MEDS ORDERED: ENOXAPARIN SODIUM 40 MG/0.4 ML SYRINGE SQ SCH (06:00)
[2016-07-24 06:38] LABS: AUTOMATED NEUTROPHIL # 5.6 TH/MM3 (1.8-7.7); BASOPHIL % 0.4 % (0.0-2.0); EOSINOPHIL # 0.2 TH/MM3 (0-0.4); EOSINOPHIL % 2.4 % (0.0-4.0); LYMPH % 24.5 % (9.0-44.0); MEAN CELL VOLUME 76.1 FL (80.0-100.0); MEAN CORPUSCULAR HEMOGLOBIN 23.8 PG (27.0-34.0); MEAN CORPUSCULAR HGB CONC 31.2 % (32.0-36.0); MONO % 5.4 % (0.0-8.0); NEUT % 67.3 % (16.0-70.0); PLATELET COUNT 258 TH/MM3 (150-450); RED BLOOD COUNT 5.25 MIL/MM3 (4.50-5.90); RED CELL DISTRIBUTION WIDTH 20.5 % (11.6-17.2); WHITE BLOOD COUNT 8.2 TH/MM3 (4.0-11.0)
[2016-07-24 06:47] LABS: HEMO FLAGS AUTO DIFF
[2016-07-24 07:02] LABS: BICARBONATE 21.7 MEQ/L (21.0-32.0); POTASSIUM 4.5 MEQ/L (3.5-5.1)
[2016-07-24 07:17] LABS: TARGET CELLS 1+ (NORMAL)
[2016-07-24 07:18] LABS: ACANTHOCYTES OCC (NORMAL); SCAN/DIFF AUTO DIFF CONFIRMED
[2016-07-24 08:00] VITALS: BP 87/53; PULSE 80; RESP 16; TEMP 97.3; O2SAT 100
[2016-07-24] MEDS ORDERED: Vancomycin Consult Pharmacy 1 EA OTHER SCH (08:00)
[2016-07-24] MEDS: SODIUM CHLORIDE 0.9% FLUSH 10 ML FLUSH IV FLUSH SCH (09:08)
[2016-07-24] MEDS: FUROSEMIDE 20 MG/2 ML VIAL IV PUSH SCH (09:08)
[2016-07-24] MEDS: LACTOBACILLUS ACIDOPHILUS 1 GM PACKET PO SCH ×2 (10:06→13:02)
--- NOTE | 2016-07-24 11:34 | HHI.PR ---
Subjective Remarks Follow-up endocarditis, CHF. The patient states that he feels very anxious. He is also reporting shortness of breath, which he attributes to the anxiety. He states the lorazepam did help last night. Denies chest pain. No other complaints at this time. Objective Vitals Vital Signs Date Time Temp Pulse Resp B/P Pulse Ox O2 Delivery O2 Flow Rate FiO2 07/24/16 08:00 97.3 80 16 87/53 100 07/24/16 00:00 97.4 84 18 118/75 99 07/23/16 20:00 97.2 92 20 115/72 100 07/23/16 12:00 96.3 82 20 113/59 100 I/O 07/23/16 07/23/16 07/23/16 07/24/16 07/24/16 07/24/16 07:00 15:00 23:00 07:00 15:00 23:00 Intake Total 240 ml 490 ml 760 ml 555 ml Balance 240 ml 490 ml 760 ml 555 ml Intake Oral 240 ml 480 ml 640 ml 280 ml IV Total 10 ml 120 ml 275 ml # Voids 0 4 2 1 # Bowel Movements 0 4 0 0 Result Diagram: 07/24/16 0530 07/24/16 0530 Imaging Last Impressions Chest X-Ray 07/22/162229 Signed Impressions: Service Date/Time: Friday, July 22, 2016 23:54 - CONCLUSION: Heart is enlarged. Loculated right pleural effusion. Juan Pablo MD Objective Remarks General: No acute distress. Heart: Regular rate and rhythm. Systolic murmur noted. Lungs: Clear to auscultation bilaterally. No wheezes, rales, or rhonchi. Breathing is nonlabored. Abdomen: Soft, nontender, nondistended. Extremities: No lower extremity edema. Psych: Alert and oriented. Procedures None Urinary Catheter: No Vascular Central Line Catheter: No A/P Problem List: (1) Endocarditis of aortic valve ICD Code: I35.8 Status: Acute (2) IV drug abuse ICD Code: F19.10 Status: Chronic (3) Endocarditis of mitral valve ICD Code: I05.8 Status: Acute (4) Acute kidney injury ICD Code: N17.9 Status: Acute (5) Acute systolic congestive heart failure ICD Code: I50.21 Status: Acute Assessment and Plan 1. Acute systolic congestive heart failure: Secondary to endocarditis. Echocardiogram shows EF of 45-50%. Continue diuresis. Monitor strict intake/ output. BNP 3600. Patient presented with dyspnea on exertion, orthopnea, weight gain, lower extremity edema. 2. Endocarditis of mitral and aortic valves: Continue antibiotics. Appreciate infectious disease recommendations. Blood cultures are negative so far. 3. Severe sepsis: Secondary to above. Continue antibiotics. 4. Acute kidney injury: Creatinine slightly improved today. Monitor labs. 5. Elevated troponin, d-dimer: Patient denies chest pain. Troponin has been elevated in the past. Patient may have chronic troponin elevation. D-dimer elevation possibly secondary to acute infection versus IV drug abuse. No further workup at this time. 6. IV drug abuse: Patient counseled to quit. 7. Anxiety/agitation: Lorazepam as needed. 8. DVT prophylaxis: Lovenox. Ja Ferreira MD Jul 24, 2016 11:34
[2016-07-24] MEDS ORDERED: LORazepam 0.5 MG TAB PO PRN (11:45)
[2016-07-24 12:00] VITALS: BP 95/59; PULSE 84; RESP 16; TEMP 97.6; O2SAT 100
[2016-07-24] MEDS ORDERED: PHARMACY ORDERED LAB ONE (15:45)
[2016-07-24 16:00] VITALS: BP 110/76; PULSE 98; RESP 18; TEMP 97.5; O2SAT 96
== END 2016-07-24 17:40 | disposition left against medical advice (07) | DRG 871 ==
LOC: PHED 21:57 → PHEDA 07-23 01:14 → PH3A 07-23 04:20 → OBSVTOIN 07-23 10:34
PROVIDERS: ADMIT Family Medicine; ATTEND Family Medicine
DX: A41.9 Sepsis, unspecified organism (principal); I50.21 Acute systolic (congestive) heart failure; N17.9 Acute kidney failure, unspecified; R65.20 Severe sepsis without septic shock; R74.8 Abnormal levels of other serum enzymes; F19.10 Other psychoactive substance abuse, uncomplicated; I08.0 Rheumatic disorders of both mitral and aortic valves; F41.9 Anxiety disorder, unspecified; Z95.2 Presence of prosthetic heart valve; B19.20 Unspecified viral hepatitis C without hepatic coma; Z86.73 Personal history of transient ischemic attack (TIA), and cerebral infarction without residual deficits; Z87.01 Personal history of pneumonia (recurrent); Z72.0 Tobacco use
CPT/HCPCS: 71020; 76937; 80048; 80053; 80202; 82550; 82552; 83605; 83735; 83880; 84484; 85025; 85379; 85610; 85652; 85730; 86140; 87040; 87493; 93005; 93306; J0295; J0696; J1650; J1940; J2060; J2405; J3370; J7030; J7050

== ENCOUNTER 2016-07-31 17:57 | Inpatient (IN) | payer BC ==
[2016-07-31] VITALS (8 sets, daily range): BP systolic 99–116; BP diastolic 56–66; PULSE 90–102; RESP 18–22; TEMP 95.9–98.6; O2SAT 97–100
[~2016-07-31] VITALS: Ht 175.3 cm; Wt 77.9 kg
[2016-07-31] MEDS ORDERED: SODIUM CHLORIDE 0.9% FLUSH 10 ML FLUSH IV FLUSH PRN ×2 (18:45→22:15)
[2016-07-31] MEDS ORDERED: BACT800T5 PO (19:44)
[2016-07-31 20:02] LABS: BLOOD, URINE TRACE (NEG); GLUCOSE,URINE NEG (NEG); KETONE, URINE NEG (NEG); NITRITE,URINE NEG (NEG)
[2016-07-31 20:09] LABS: CHLORIDE 101 MEQ/L (98-107); POTASSIUM 3.6 MEQ/L (3.5-5.1); SODIUM (NA) 134 MEQ/L (136-145)
[2016-07-31 20:10] LABS: SQUAMOUS EPITHELIAL CELL URINE 0-5 /hpf (0-5); URINE COLOR YELLOW (YELLW/STRAW)
[2016-07-31 20:11] LABS: COMMENT (UR) CULT NOT INDICATED; CULTURE IF INDICATED CULT NOT INDICATED
[2016-07-31 20:13] LABS: ANION GAP 12 MEQ/L (5-15); BICARBONATE 20.6 MEQ/L (21.0-32.0); BLOOD UREA NITROGEN 33 MG/DL (7-18)
[2016-07-31 20:14] LABS: APTT (PATIENT) 28.7 SEC (24.3-30.1); INTERNATIONAL NORMALIZED RATIO 1.3 RATIO
[2016-07-31 20:15] LABS: ALT (GPT) 121 U/L (12-78); AUTOMATED NEUTROPHIL # 5.6 TH/MM3 (1.8-7.7); BASOPHIL # 0.1 TH/MM3 (0-0.2); BASOPHIL % 1.5 % (0.0-2.0); EOSINOPHIL # 0.1 TH/MM3 (0-0.4); EOSINOPHIL % 1.4 % (0.0-4.0); HEMATOCRIT 37.4 % (39.0-51.0); LYMPH % 20.5 % (9.0-44.0); LYMPHOCYTE # 1.6 TH/MM3 (1.0-4.8); MEAN CELL VOLUME 72.8 FL (80.0-100.0); MEAN CORPUSCULAR HEMOGLOBIN 23.8 PG (27.0-34.0); MEAN CORPUSCULAR HGB CONC 32.6 % (32.0-36.0); MONO % 7.6 % (0.0-8.0); PLATELET COUNT 200 TH/MM3 (150-450); RED BLOOD COUNT 5.14 MIL/MM3 (4.50-5.90)
[2016-07-31 20:16] LABS: AST (GOT) 72 U/L (15-37); GLOMERULAR FILTRATION RATE 64 ML/MIN (>89)
[2016-07-31 20:17] LABS: TOTAL BILIRUBIN ADULT 1.7 MG/DL (0.2-1.0)
[2016-07-31 20:18] LABS: ALKALINE PHOSPHATASE 140 U/L (45-117); HEMO FLAGS AUTO DIFF
[2016-07-31 20:57] LABS: TARGET CELLS 1+ (NORMAL)
[2016-07-31 20:58] LABS: OVALOCYTES 1+ (NORMAL); SCAN/DIFF AUTO DIFF CONFIRMED
[2016-07-31] MEDS ORDERED: cefTRIAXone INJ 2,000 MG in SODIUM CHLORIDE 0.9% INJ 100 ML IV ONE (21:15)
[2016-07-31] MEDS ORDERED: FUROSEMIDE 100 MG/10 ML VIAL IV PUSH ONE (21:15)
[2016-07-31] MEDS ORDERED: VANCOMYCIN INJ 1,000 MG in SODIUM CHLOR 0.9% 250 ML INJ 250 ML IV ONE (21:15)
--- NOTE | 2016-07-31 21:49 | PD ---
HPI Chief Complaint: Edema Time Seen by Provider: 19:56 Travel History International Travel<30 days: No Contact w/Intl Traveler<30days: No Traveled to known affect area: No History of Present Illness HPI Patient is a 30-year-old admitted IV drug user has not used IV drugs in 2 weeks presents the emergency department for evaluation of swelling of his legs and some mild shortness of breath. Patient was evaluated by me a few weeks ago at which time he was admitted to the hospital for suspicion of endocarditis. He did have an ultrasound at that time which showed he did have vegetations. He was seen by infectious disease and recommended that he have Rocephin and vancomycin. Patient does have a history of valve replacement. He was also admitted at that time for new onset CHF. Patient states that he signed out AMA during that admission because he thought it was more his kidneys. He went to an outside facility where he had a workup and was told that it was in his kidneys that it was his heart. He returns to our emergency department today for admission for vancomycin and Rocephin. He states that he is also talked to multiple persons about having repeat surgery and was told that nobody in [place] will do his surgery because of his IV drug use status. He is currently pursuing possible surgery at the [facility]. PFSH Past Medical History Asthma: Yes Anxiety: Yes Depression: No Cancer: No Cardiac Catheterization: Yes Cardiovascular Problems: Yes Congestive Heart Failure: Yes Cerebrovascular Accident: Yes (2013) Diminished Hearing: No Endocrine: No Gastrointestinal Disorders: No Genitourinary: Yes Hepatitis: Yes (HEP C) Hypertension: Yes Immune Disorder: No Implanted Vascular Access Dvce: No Musculoskeletal: No Neurologic: No Psychiatric: Yes Reproductive: No Respiratory: Yes Immunizations Current: No Pneumonia: Yes (X 2) Renal Failure: Yes (JULY 2013 FROM "BECKY OVERDOSE", DIALYSIS X 7 WEEKS) Influenza Vaccination: Yes Past Surgical History Cardiac Surgery: Yes (MITRAL VALVE REPLACEMENT AFTER ENDOCARDITIS ) Valve Replacement: Yes Other Surgery: Yes Social History Alcohol Use: Yes () Tobacco Use: Yes (1/2 PPD) Substance Use: Yes (none in 2 weeks per pt) Allergies-Medications (Allergen,Severity, Reaction): Coded Allergies: Sesame Seed (Unverified Allergy, Severe, Anaphylaxis, 07/31/16) Shellfish (Unverified Allergy, Severe, Anaphylaxis, 07/31/16) Reported Meds & Prescriptions Reported Meds & Active Scripts Active Reported Bactrim DS (Sulfamethoxazole-Trimethoprim) 800-160 Mg Tab 1 Tab PO BID Review of Systems Except as stated in HPI: all other systems reviewed are Neg Physical Exam Narrative GENERAL: Well-developed well-nourished, mildly jaundiced. SKIN: Mildly jaundiced, no Osler nodes no splinter hemorrhages. No Janeway lesions. HEAD: Atraumatic. Normocephalic. EYES: Pupils equal and round. Minimal icterus. No injection or drainage. ENT: No nasal bleeding or discharge. Mucous membranes pink and moist. NECK: Trachea midline. No JVD. CARDIOVASCULAR: Regular rate and rhythm. No murmur appreciated. RESPIRATORY: No accessory muscle use. Clear to auscultation. Breath sounds equal bilaterally. GASTROINTESTINAL: Abdomen soft, non-tender, nondistended. Hepatic and splenic margins not palpable. MUSCULOSKELETAL: No obvious deformities. No clubbing. No cyanosis. Patient has 2+ pitting edema from the knee Distally bilaterally. NEUROLOGICAL: Awake and alert. No obvious cranial nerve deficits. Motor grossly within normal limits. Normal speech. PSYCHIATRIC: Appropriate mood and affect; insight and judgment normal. Data Data Last Documented VS Vital Signs Date Time Temp Pulse Resp B/P Pulse Ox O2 Delivery O2 Flow Rate FiO2 07/31/16 21:09 93 20 112/56 97 Room Air 07/31/16 18:20 98.6 Orders Complete Blood Count With Diff (07/31/16 18:34) Comprehensive Metabolic Panel (07/31/16 18:34) Lipase (07/31/16 18:34) Lactic Acid (07/31/16 18:34) Prothrombin Time / Inr (Pt) (07/31/16 18:34) Act Partial Throm Time (Ptt) (07/31/16 18:34) Urinalysis - C+S If Indicated (07/31/16 18:34) Iv Access Insert/Monitor (07/31/16 18:34) Ecg Monitoring (07/31/16 18:34) Oximetry (07/31/16 18:34) Sodium Chloride 0.9% Flush (Ns Flush) (07/31/16 18:45) Electrocardiogram (07/31/16 18:34) Ammonia (07/31/16 18:34) B-Type Natriuretic Peptide (07/31/16 18:34) Blood Culture (07/31/16 21:05) Vancomycin Inj (Vancomycin Inj) (07/31/16 21:15) Ceftriaxone Inj (Rocephin Inj) (07/31/16 21:15) Furosemide Inj (Lasix Inj) (07/31/16 21:15) Chest, Single Ap (07/31/16 ) Admit Order (Ed Use Only) (07/31/16 ) Labs Laboratory Tests Test 07/31/16 19:53 White Blood Count 8.0 TH/MM3 Red Blood Count 5.14 MIL/MM3 Hemoglobin 12.2 GM/DL Hematocrit 37.4 % Mean Corpuscular Volume 72.8 FL Mean Corpuscular Hemoglobin 23.8 PG Mean Corpuscular Hemoglobin 32.6 % Concent Red Cell Distribution Width 19.0 % Platelet Count 200 TH/MM3 Mean Platelet Volume 8.4 FL Neutrophils (%) (Auto) 69.0 % Lymphocytes (%) (Auto) 20.5 % Monocytes (%) (Auto) 7.6 % Eosinophils (%) (Auto) 1.4 % Basophils (%) (Auto) 1.5 % Neutrophils # (Auto) 5.6 TH/MM3 Lymphocytes # (Auto) 1.6 TH/MM3 Monocytes # (Auto) 0.6 TH/MM3 Eosinophils # (Auto) 0.1 TH/MM3 Basophils # (Auto) 0.1 TH/MM3 CBC Comment AUTO DIFF Differential Comment AUTO DIFF CONFIRMED Target Cells 1+ Ovalocytes 1+ Prothrombin Time 15.0 SEC Prothromb Time International 1.3 RATIO Ratio Activated Partial 28.7 SEC Thromboplast Time Urine Color YELLOW Urine Turbidity CLEAR Urine pH 6.0 Urine Specific [place] 1.010 Urine Protein 30 mg/dL Urine Glucose (UA) NEG mg/dL Urine Ketones NEG mg/dL Urine Occult Blood TRACE Urine Nitrite NEG Urine Bilirubin NEG Urine Leukocyte Esterase NEG Urine Squamous Epithelial 0-5 /hpf Cells Microscopic Urinalysis Comment CULT NOT INDICATED Sodium Level 134 MEQ/L Potassium Level 3.6 MEQ/L Chloride Level 101 MEQ/L Carbon Dioxide Level 20.6 MEQ/L Anion Gap 12 MEQ/L Blood Urea Nitrogen 33 MG/DL Creatinine 1.30 MG/DL Estimat Glomerular Filtration 64 ML/MIN Rate Random Glucose 103 MG/DL Lactic Acid Level 2.6 mmol/L Calcium Level 7.5 MG/DL Total Bilirubin 1.7 MG/DL Aspartate Amino Transf 72 U/L (AST/SGOT) Alanine Aminotransferase 121 U/L (ALT/SGPT) Alkaline Phosphatase 140 U/L Ammonia 46 MCMOL/L B-Type Natriuretic Peptide GREATER THAN 5000 PG/ML Total Protein 6.6 GM/DL Albumin 2.7 GM/DL Lipase 68 U/L MDM Medical Decision Making Medical Screen Exam Complete: Yes Emergency Medical Condition: Yes Differential Diagnosis Endocarditis, congestive heart failure, valve failure, acute exacerbation of CHF. Narrative Course This is a 30-year-old male admitted IV drug user is not using 2 weeks. He was admitted earlier this month for endocarditis and acute CHF by me. He had an ultrasound which did show vegetation he was continued on bank and Rocephin. The patient signed out AMA thinking that his problems reaction from his kidney. He went to an outside facility who also told him it was his heart and now he returns to be treated for his heart. On his last admission he was seen by Dr. Hein for infectious disease recommended vancomycin and Rocephin. He was given doses of each here. Repeat set of blood cultures was sent. The patient does have edema to his knees. Patient was discussed with Dr. Suazo for admission. Diagnosis Primary Impression: Acute systolic congestive heart failure Additional Impression: Fluid overload Qualified Code: E87.70 - Hypervolemia, unspecified hypervolemia type Admitting Information Admitting Physician Requests: Admit Condition: Stable Efrain Fierro MD Jul 31, 2016 21:49
[2016-07-31] MEDS ORDERED: POTASSIUM CHLORIDE 20 MEQ CONTROLLED RELEASE TAB PO ONE (22:15)
[2016-07-31] MEDS ORDERED: Vancomycin Consult Pharmacy 1 EA OTHER SCH (22:15)
[2016-07-31] MEDS ORDERED: NALOXONE HCL 0.4 MG/ML AMP IV PRN (22:15)
--- NOTE | 2016-07-31 22:30 | RADHPO ---
EXAM DATE/TIME: 07/31/2016 21:55 [facility] COMPARISON: CHEST PA & LAT, July 22, 2016, 23:54. INDICATIONS : Short of breath. MEDICAL HISTORY : None. SURGICAL HISTORY : Valve replacement. ENCOUNTER: Initial ACUITY: 1 day PAIN SCORE: 0/10 LOCATION: Bilateral chest FINDINGS: Mild cardiomegaly again noted. Patient has had previous median sternotomy and valve replacement. Smal l right pleural effusion not significantly changed. No pulmonary edema or infiltrate. No pneumothorax . CONCLUSION: Mild cardiomegaly and a small right pleural effusion. Findings are similar to the study 9 days ago. Sachin Edmondson MD on July 31, 2016 at 22:27 Board Certified Radiologist. This report was verified electronically.
[2016-07-31] MEDS ORDERED: ALPRAZolam 0.25 MG TAB PO ONE (23:45)
[2016-08-01 00:24] VITALS: PULSE 96
[2016-08-01 04:00] VITALS: BP 95/53; PULSE 87; RESP 18; TEMP 95.2; O2SAT 100
[2016-08-01 06:08] LABS: AUTOMATED NEUTROPHIL # 4.8 TH/MM3 (1.8-7.7); BASOPHIL % 0.3 % (0.0-2.0); EOSINOPHIL # 0.1 TH/MM3 (0-0.4); EOSINOPHIL % 1.3 % (0.0-4.0); HEMATOCRIT 38.2 % (39.0-51.0); LYMPH % 19.9 % (9.0-44.0); LYMPHOCYTE # 1.4 TH/MM3 (1.0-4.8); MEAN CORPUSCULAR HEMOGLOBIN 23.7 PG (27.0-34.0); MEAN CORPUSCULAR HGB CONC 32.1 % (32.0-36.0); MONO % 9.9 % (0.0-8.0); NEUT % 68.6 % (16.0-70.0); PLATELET COUNT 190 TH/MM3 (150-450); RED BLOOD COUNT 5.16 MIL/MM3 (4.50-5.90)
[2016-08-01 06:10] LABS: POTASSIUM 3.4 MEQ/L (3.5-5.1)
[2016-08-01 06:11] LABS: HEMO FLAGS AUTO DIFF
[2016-08-01 06:15] LABS: BICARBONATE 24.9 MEQ/L (21.0-32.0)
[2016-08-01 06:43] LABS: SCAN/DIFF AUTO DIFF CONFIRMED
[2016-08-01 08:00] VITALS: BP 90/67; PULSE 84; RESP 18; TEMP 98.2; O2SAT 97
[2016-08-01] MEDS: SODIUM CHLORIDE 0.9% FLUSH 10 ML FLUSH IV FLUSH SCH ×2 (08:18→20:00)
[2016-08-01] MEDS ORDERED: FUROSEMIDE 40 MG/4 ML VIAL IV PUSH SCH (09:00)
[2016-08-01] MEDS ORDERED: VANCOMYCIN INJ 1,250 MG in SODIUM CHLOR 0.9% 250 ML INJ 250 ML IV SCH (09:00)
[2016-08-01] MEDS ORDERED: cefTRIAXone INJ 2,000 MG in SODIUM CHLORIDE 0.9% INJ 100 ML IV SCH (09:00)
[2016-08-01] MEDS: ONDANSETRON ODT 4 MG TAB PO PRN ×2 (09:12→18:25)
[2016-08-01] MEDS ORDERED: POTASSIUM CHLORIDE 25 MEQ EFFERVESCENT TAB PO ONE (09:15)
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
[2016-08-01] MEDS ORDERED: LORazepam 0.5 MG TAB PO PRN (09:30)
[2016-08-01] MEDS: NICOTINE 7 MG/24 HR PATCH T-DERMAL SCH (11:04)
[2016-08-01 12:00] VITALS: BP 89/54; PULSE 96; RESP 18; TEMP 98; O2SAT 97
[2016-08-01] MEDS: METOCLOPRAMIDE HCL 10 MG/2 ML VIAL IV PUSH PRN ×2 (13:37→20:00)
[2016-08-01] MEDS ORDERED: FUROSEMIDE 40 MG/4 ML VIAL IV PUSH ONE (13:45)
[2016-08-01] MEDS: LORazepam 2 MG/ML VIAL IV PUSH PRN ×3 (14:00→20:00)
--- NOTE | 2016-08-01 14:01 | EKG ---
Date Performed: 07/31/2016 Time Performed: 19:53:54 PTAGE: 30 years EKG: Possible ectopic atrial rhythm Right axis deviation IV conduction defect Right ventricular hypertrophy Anterolateral ST elevation suggests early repolarization Inferior ST-T changes may be due to hypertrophy and/or ischemia Compared to prior tracing no significant change Abnormal ECG PREVIOUS TRACING 07/22/16 @23.34.32 DOCTOR: Jim Torres Interpretating Date/Time 08/01/2016 13:59:15
[2016-08-01 15:56] LABS: HDL CHOLESTEROL 10.5 MG/DL (40.0-60.0)
[2016-08-01 16:00] VITALS: BP 96/60; PULSE 96; RESP 16; TEMP 98.9; O2SAT 97
[2016-08-01] MEDS: FUROSEMIDE 40 MG/4 ML VIAL IV PUSH SCH ×3 (18:00→19:59)
[2016-08-01] MEDS: SULFAMETHOXAZOLE-TRIMETHOPRIM DS 800-160 MG TAB PO SCH (19:58)
[2016-08-01 20:00] VITALS: BP 108/78; PULSE 111; RESP 18; TEMP 97.3; O2SAT 99
[2016-08-01 20:35] LABS: BICARBONATE 20.5 MEQ/L (21.0-32.0); POTASSIUM 5.2 MEQ/L (3.5-5.1)
[2016-08-01] MEDS ORDERED: CALCIUM GLUCONATE INJ 2 GM in DEXTROSE 5% IN WATER 100ML INJ 100 ML IV ONE ×2 (21:45)
[2016-08-02] VITALS: BP 137/77; PULSE 105; RESP 18; TEMP 97.8; O2SAT 97
[2016-08-02 08:00] VITALS: BP 100/59; PULSE 93; RESP 17; TEMP 98; O2SAT 96
[2016-08-02 08:01] VITALS: PULSE 102
[2016-08-02] MEDS ORDERED: PHARMACY ORDERED LAB ONE (08:45)
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
[2016-08-02] MEDS ORDERED: cefTRIAXone INJ 2,000 MG in SODIUM CHLORIDE 0.9% INJ 100 ML IV SCH (09:00)
[2016-08-02] MEDS ORDERED: REMOVE OLD PATCH T-DERMAL SCH (09:00)
[2016-08-02] MEDS: FUROSEMIDE 40 MG/4 ML VIAL IV PUSH SCH (09:55)
[2016-08-02] MEDS: METOCLOPRAMIDE HCL 10 MG/2 ML VIAL IV PUSH PRN ×3 (09:55→17:29)
[2016-08-02] MEDS: SULFAMETHOXAZOLE-TRIMETHOPRIM DS 800-160 MG TAB PO SCH (09:55)
[2016-08-02] MEDS: SODIUM CHLORIDE 0.9% FLUSH 10 ML FLUSH IV FLUSH SCH (09:56)
[2016-08-02] MEDS: NICOTINE 7 MG/24 HR PATCH T-DERMAL SCH (09:56)
[2016-08-02 10:11] LABS: BICARBONATE 22.7 MEQ/L (21.0-32.0); MAGNESIUM 1.8 MG/DL (1.5-2.5); POTASSIUM 4.6 MEQ/L (3.5-5.1)
[2016-08-02] MEDS: LORazepam 2 MG/ML VIAL IV PUSH PRN ×2 (11:26→14:53)
[2016-08-02] MEDS ORDERED: BENZONATATE 100 MG CAP PO ONE (11:30)
[2016-08-02] MEDS ORDERED: BENZONATATE 100 MG CAP PO PRN (11:30)
--- NOTE | 2016-08-02 11:35 | HHI.PR ---
Subjective Remarks The patient was having shortness of breath and coughing continuously. He said he was still vomiting small amounts of blood. He said that he did finally get some sleep this morning. Discussed with nursing. Objective Vitals Vital Signs Date Time Temp Pulse Resp B/P Pulse Ox O2 Delivery O2 Flow Rate FiO2 08/02/16 08:00 98.0 93 17 100/59 96 08/02/16 00:00 97.8 105 18 137/77 97 08/01/16 20:00 97.3 111 18 108/78 99 08/01/16 16:00 98.9 96 16 96/60 97 08/01/16 12:00 98.0 96 18 89/54 97 I/O 08/01/16 08/01/16 08/01/16 08/02/16 08/02/16 08/02/16 07:00 15:00 23:00 07:00 15:00 23:00 Intake Total 250 ml 375 ml 540 ml 520 ml Output Total 1100 ml 850 ml 350 ml 600 ml 900 ml Balance -850 ml -475 ml 190 ml -80 ml -900 ml Intake Oral 540 ml 420 ml IV Total 250 ml 375 ml 100 ml Output Urine Total 1100 ml 850 ml 350 ml 600 ml 900 ml # Voids 5 # Bowel Movements 1 0 Result Diagram: 08/01/16 0455 08/02/16 0751 Imaging Last Impressions Chest X-Ray 07/31/16 0000 Signed Impressions: Service Date/Time: Sunday, July 31, 2016 21:55 - CONCLUSION: Mild cardiomegaly and a small right pleural effusion. Findings are similar to the study 9 days ago. Sachin Edmondson MD Objective Remarks GENERAL: Well-developed, well-nourished, coughing frequently. SKIN: Warm and dry. Track camacho present. HEENT: Normocephalic. Pupils equal and round. Mucous membranes pink and moist. Positive JVD. CARDIOVASCULAR: Regular rate and rhythm. Mechanical murmur appreciated. RESPIRATORY: No accessory muscle use. Clear to auscultation. Breath sounds equal bilaterally. GASTROINTESTINAL: Abdomen soft, non-tender, nondistended. Bowel sounds x4. MUSCULOSKELETAL: No obvious deformities. 1+ edema in the lower extremities. Purple discoloration to distal lower extremities. Pedal pulse palpable on RLE, not palpable on LLE. NEUROLOGICAL: Awake and alert. No focal neurological deficits. Moves upper and lower extremities spontaneously. Normal speech. PSYCHIATRIC: Flattened affect. Medications and IVs Current Medications Medications (Trade) Dose Ordered Sig/Francisco J Route Start Time Stop Time Status Last Admin (NS Flush) 2 ml UNSCH PRN IV FLUSH 07/31/16 22:15 (NS Flush) 2 ml BID IV FLUSH 08/01/16 09:00 08/02/16 09:56 (Narcan Inj) 0.4 mg UNSCH PRN IV 07/31/16 22:15 (Zofran Odt) 4 mg Q6H PRN PO 08/01/16 07:45 08/01/16 18:25 (Habitrol 7 Mg Patch.24 Hr) 1 patch DAILY T-DERMAL 08/01/16 09:30 08/02/16 09:56 Miscellaneous Information 1 DAILY T-DERMAL 08/02/16 09:00 08/02/16 09:00 (Reglan Inj) 5 mg Q8H PRN IV PUSH 08/01/16 10:15 08/01/16 20:00 (Ativan Inj) 1 mg Q4H PRN IV PUSH 08/01/16 14:00 08/01/16 20:00 (Bactrim Ds 800-160 Mg) 1 tab BID PO 08/01/16 21:00 08/02/16 09:55 (Lasix Inj) 40 mg BID@09,18 IV PUSH 08/02/16 18:00 (Tessalon) 100 mg ONCE ONCE PO 08/02/16 11:30 08/02/16 11:31 (Tessalon) 200 mg TID PRN PO 08/02/16 11:30 A/P Assessment and Plan Acute systolic congestive heart failure/ Respiratory distress Secondary to endocarditis. Patient presented with dyspnea on exertion, orthopnea , weight gain, lower extremity edema. Echocardiogram shows EF of 45-50%. BNP over 5000. ABG with compensated respiratory alkalosis. - Continue diuresis with Lasix 40 mg IV BID. - Monitor strict intake/output. Olguin to be placed. - cardiology consult noted. - heart healthy diet. - dobutamine not recommended by cardiology at this time. - repeat CXR. - check another lactic acid level. Peripheral vascular disease Left lower extremity with faint pulse on Doppler. Likely s/t decreased perfusion from CHF. - vascular surgery notified and will be seeing pt. - unable to obtain CTA with runoff s/t renal function. Unable to start heparin as pt has a history of recent hemorrhagic CVA. Endocarditis Involving mitral and aortic valves. - Continue prophylactic Bactrim. - consult infectious disease if needed. Blood cultures currently negative. - the pt says he will follow in [place] for future surgery. Abdominal pain Has some bouts of vomiting with eating. The pt has elevated LFTs which may be s/ t hepatic congestion from CHF. - trend LFTs. - continue diuresis. Oliguria Likely s/t uncompensated CHF. - continue diuresis. - strict Is and Os. Olguin to be placed. IV drug abuse Continues to use IV drugs. - Patient counseled to quit. Anxiety Chronic. - low dose lorazepam as needed. Smoking dependance The pt wants to quit. - nicotine patch. Hypokalemia S/t Lasix. - replete and monitor. PPx: SCDs. Discharge Planning Awaiting clinical improvement. Craig Villegas DO Aug 02, 2016 11:35
[2016-08-02 11:45] LABS: BLOOD GAS BASE EXCESS -8.7 mmol/L (-2-2); BLOOD GAS CARBOXYHEMOGLOBIN 2.4 % (0-4); BLOOD GAS HCO3 15 mmol/L (22-26); BLOOD GAS O2 HGB SATURATION 93 % (90-100); BLOOD GAS OXYGEN CONTENT 15.7 Vol % (12.0-20.0); BLOOD GAS PCO2 23 mmHG (38-42); BLOOD GAS PO2 85 mmHG (61-120); BLOOD GAS TOTAL HGB 11.9 G/DL (12.0-16.0); CRITICAL VALUE YES; DRAW SITE LT RADIAL; FIO2 21 %; NUMBER OF ARTERIAL PUNCTURES 1; OXYGEN DEVICE RA; STAT YES; TEMP CORR TO 98.6; ULNAR PULSE PRESENT
[2016-08-02 12:00] VITALS: BP 99/65; PULSE 95; RESP 20; TEMP 97.9; O2SAT 95
[2016-08-02 12:41] LABS: TOTAL BILIRUBIN ADULT 1.7 MG/DL (0.2-1.0)
--- NOTE | 2016-08-02 13:32 | RADHPO ---
EXAM DATE/TIME: 08/02/2016 12:32 [place] COMPARISON: CHEST SINGLE AP, July 31, 2016, 21:55. INDICATIONS : Congestive heart failure. MEDICAL HISTORY : Congestive heart failure. Endocarditis SURGICAL HISTORY : Open heart ENCOUNTER: Initial ACUITY: 2 days PAIN SCORE: 6/10 LOCATION: Bilateral upper chest FINDINGS: Sternal wires from previous mediastinum are noted. Valve prosthesis is evident. Heart is minimally enlarged. Mild interstitial edema is present. CONCLUSION: 1. Minimal increased in congestive failure. 2. Cardiac silhouette remains prominent. Bassem Saenz MD FACR on August 02, 2016 at 13:01 Board Certified Radiologist. This report was verified electronically.
[2016-08-02] MEDS: ONDANSETRON ODT 4 MG TAB PO PRN (14:52)
[2016-08-02 16:00] VITALS: BP 105/80; PULSE 97; RESP 19; TEMP 98.1; O2SAT 96
[2016-08-02] MEDS ORDERED: FUROSEMIDE 40 MG/4 ML VIAL IV PUSH SCH (18:00)
--- NOTE | 2016-08-02 18:14 | PD.AMA ---
Against Medical Advice Note Discharge Disposition: Against Medical Advice Pt Condition on Discharge: Deteriorating Recommended Treatment Course The patient told that he needed to remain in the hospital for further diuresis. He was told that he had evidence of poor circulation and he needed to be evaluated by vascular surgery. He was made aware that his heart failure was getting worse and other organs and his body were being affected. He understood his current condition and also was able to recite what could happen if he left the hospital at this time. He was alert and oriented and demonstrated capacity. AMA Statement Patient Kaylan Reyes has decided to leave the hospital against medical advice. This patient has the capacity to refuse care and understands the risks of leaving, including permanent disability and/or , and has had an opportunity to ask questions about his condition. The patient has been informed that he may return for care at any time, and follow up has been arranged/ advised. Craig Villegas DO Aug 02, 2016 18:14
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
== END 2016-08-02 18:22 | disposition left against medical advice (07) | DRG 292 ==
LOC: PHED 17:57 → PHEDA 21:48 → PH3A 22:49
PROVIDERS: ADMIT Hospitalist; ATTEND Hospitalist
DX: I50.21 Acute systolic (congestive) heart failure (principal); E87.3 Alkalosis; R34 Anuria and oliguria; I73.9 Peripheral vascular disease, unspecified; I08.0 Rheumatic disorders of both mitral and aortic valves; Z95.2 Presence of prosthetic heart valve; F41.9 Anxiety disorder, unspecified; F17.210 Nicotine dependence, cigarettes, uncomplicated; E87.6 Hypokalemia; Z86.73 Personal history of transient ischemic attack (TIA), and cerebral infarction without residual deficits; B19.20 Unspecified viral hepatitis C without hepatic coma; R10.9 Unspecified abdominal pain
CPT/HCPCS: 36600; 71010; 76937; 80048; 80053; 80061; 80076; 81001; 82140; 82805; 83605; 83690; 83735; 83880; 84155; 85025; 85610; 85730; 87040; 93005; 96365; 96375; J0610; J0696; J1940; J2060; J2765; J3370; J7050